=== PATIENT | female | born 1945 | race Caucasian/White ===

== ENCOUNTER → 2016-09-06 | Outpatient (CLI) | payer MEDICARE, BC ==
[~2016-09-06] MED LIST: ASPIRIN (CHILDR81 MG PO; CALTRATE 600 +1 EAC1 PO; CARAFATE1 GM PO; CELLCEPT500 MG PO; COLACE100 MG PO; CYCLOBENZAPRINE5 MG PO; FIORICET 50-301 EACH PO; FISH OIL1000 MG PO; GLUCOSAMINE CH1 EAC3 PO; KLOR-CON 1010 MEQ PO; LASIX20 MG PO; LYRICA 75MG CAP75 MG PO; MILK OF MA400 MG/5 M PO; MUCINEX DM ER1 EAC1 PO; MYCOSTATIN(NYST15 GM TOP; NASAL & SINUS D30 MG PO; PROTONIX40 MG PO; PROVENTIL OR V6.7 GM INH; SOLU-MEDRO40 MG/1 ML IV; TEARGEN1 BOT OPHTH; TRUSOPT 2% OPTH10 ML OPHTH; TYLENOL EXTRA500 MG PO; ZOCOR20 MG PO
== END | disposition disaster alternative care site (69) ==
LOC: LGSMG 07:24
DX: J31.0 Chronic rhinitis (principal); R05 Cough